=== PATIENT | male | born 1980 | race Caucasian/White ===

== ENCOUNTER 2019-05-09 17:12 | Emergency (ER) | payer SELFPAY ==
[2019-05-09] MEDS ORDERED: METHYLPREDNISOLONE INJ 125 MG/2 ML SDV IM ONE (18:09)
[2019-05-09] MEDS ORDERED: FAMOTIDINE 20 MG TABLET PO ONE (18:09)
[2019-05-09] MEDS ORDERED: DIPHENHYDRAMINE HCL 50 MG CAPSULE PO ONE (18:09)
[2019-05-09] MEDS ORDERED: DIPH/PERTUSS(ACELL)/TETANUS VAC/PF 0.5 ML SYR (>=10YO) IM ONE (18:11)
--- NOTE | 2019-05-09 18:11 | ER Document Report ---
ED Medical Screen (RME) - General Chief Complaint: Skin Problem Stated Complaint: POSSIBLE BUG BITE Time Seen by Provider: 05/09/19 18:02 - HPI Notes: 05/09/19 18:09 Patient is a 39-year-old male no significant past medical history who presents complaining of sudden onset left hand redness pain and swelling after he was cleaning out a duct underneath a mobile home. Patient does not recall feeling anything bite him, but when he pulled his hand out from underneath events he started noticing some redness and swelling which then progressed. This occurred at 2 PM initially. He has not noticed any purulent drainage or streaking otherwise. Patient states he does feel some generalized tingling throughout his body. No fever, headache, chest pain, shortness of breath, palpitations. No vomiting or diarrhea. No paralysis. I have treated and performed a rapid initial assessment of this patient. A comprehensive ED assessment and evaluation of the patient, analysis of test results and completion of medical decision making process will be conducted by additional ED providers. PHYSICAL EXAMINATION: GENERAL: Well-appearing, well-nourished and in no acute distress. A&Ox4. Answers questions appropriately. Left hand: There is noted swelling and erythema to the dorsal hand with mild tenderness to palpation. N/V intact. No strekas or discharge. - Related Data Allergies/Adverse Reactions: No Known Allergies Allergy (Verified 05/09/19 18:00) Physical Exam - Vital signs Vitals: Temp Pulse Resp BP Pulse Ox 99.8 F 104 H 18 139/60 H 99 05/09/19 17:42 05/09/19 17:42 05/09/19 17:42 05/09/19 17:42 05/09/19 17:42 Course - Vital Signs Vital signs: Temp Pulse Resp BP Pulse Ox 99.8 F 104 H 18 139/60 H 99 05/09/19 17:42 05/09/19 17:42 05/09/19 17:42 05/09/19 17:42 05/09/19 17:42
--- NOTE | 2019-05-09 18:45 | RADIOLOGY REPORT (SQ) ---
EXAM DESCRIPTION: HAND LEFT 3 VIEWS COMPLETED DATE/TIME: 05/09/2019 6:20 pm REASON FOR STUDY: pain/swelling dorsal hand, no injury COMPARISON: None. EXAM PARAMETERS: NUMBER OF VIEWS: Three views. TECHNIQUE: AP, lateral and oblique radiographic images acquired of the left hand. LIMITATIONS: None. FINDINGS: MINERALIZATION: Normal. BONES: Prior 5th metacarpal fracture. JOINTS: No effusions. SOFT TISSUES: Soft tissue swelling. OTHER: No other significant finding. IMPRESSION: Nonspecific soft tissue swelling. No acute osseous finding. TECHNICAL DOCUMENTATION: JOB ID: [id number] 2010 [employer]- All Rights Reserved Reading location - IP/workstation name: [email or web address]
[2019-05-09] MEDS ORDERED: CEFTRIAXONE 1 GM/D5W RTU 1 GM/50 ML RTUPB IV ONE (19:35)
[2019-05-09] MEDS ORDERED: NORMAL SALINE 1000 ML 1,000 ML IV ONE (19:35)
[2019-05-09 19:36] LABS: ABSOLUTE NEUT (AUTO) 5.5 10^3/uL (1.7-8.2); BASOPHILS % (AUTO) 0.4 % (0-2); EOSINOPHILS % (AUTO) 0.7 % (0-6); HEMOGLOBIN 14.6 g/dL (13.5-17.0); TOTAL CELLS COUNTED % (AUTO) 100 %; WHITE BLOOD COUNT 7.2 10^3/uL (4.0-10.5)
[2019-05-09] MEDS ORDERED: HYDROCODONE/ACETAMINOPHEN 5-325 MG (6 TAB/ER DISP) PO ONE (19:37)
--- NOTE | 2019-05-09 19:41 | ER Document Report ---
ED General - General Chief Complaint: Skin Problem Stated Complaint: POSSIBLE BUG BITE Time Seen by Provider: 05/09/19 18:02 Notes: Patient is a 39-year-old white male with no significant past medical history who presents to the emergency department with a chief complaint of painful red swollen left hand that occurred several hours prior to arrival. The patient reports that he was working underneath a mobile home on a duct vent area most of the day today. He denies recalling any bite or pain while working on this site. He states gradually after working he started to feel some burning sensation in the hand. He states he noticed some swelling and redness beginning to develop. He states that area has worsened over the past several hours, he was concerned so he came for evaluation. Patient is unsure of his last tetanus. Admits to pain and swelling of the left hand. No numbness tingling or weakness. - Related Data Allergies/Adverse Reactions: No Known Allergies Allergy (Verified 05/09/19 18:00) Past Medical History - Social History Smoking Status: Current Every Day Smoker Family History: None Patient has suicidal ideation: No Patient has homicidal ideation: No Review of Systems - Review of Systems Musculoskeletal: Joint pain Skin: Change in color -: Yes All other systems reviewed and negative Physical Exam - Vital signs Vitals: Temp Pulse Resp BP Pulse Ox 99.8 F 104 H 18 139/60 H 99 05/09/19 17:42 05/09/19 17:42 05/09/19 17:42 05/09/19 17:42 05/09/19 17:42 - General General appearance: Appears well, Alert In distress: None - Respiratory Respiratory status: No respiratory distress Chest status: Nontender Breath sounds: Normal Chest palpation: Normal - Cardiovascular Rhythm: Regular Heart sounds: Normal auscultation - Extremities Hand: Tender, No evidence of human bite, Swelling, Other - Good capillary refill distally in the left hand. Decreased range of motion of the hand secondary to pain and swelling. +2+ radial pulse on the left. - Neurological Neuro grossly intact: Yes Cognition: Normal Orientation: AAOx4 [place] Coma Scale Eye Opening: Spontaneous [place] Coma Scale Verbal: Oriented [place] Coma Scale Motor: Obeys Commands [place] Coma Scale Total: 15 Speech: Normal Motor strength normal: LUE, RUE, LLE, RLE Sensory: Normal - Psychological Associated symptoms: Normal affect, Normal mood - Skin Skin Color: Other - Erythematous left hand dorsally with some proximal streaking to about the left elbow, multiple superficial skin scrapes to the left dorsal hand and forearm no obvious bite sites. Increased warmth. No abscess Course - Re-evaluation Re-evalutation: 05/09/19 20:49 Reevaluation at this time, patient reports significant provement in the erythema and swelling already. He will be sent home on double coverage with Bactrim and Keflex. His tetanus was updated. White count within normal limits, afebrile. He is stable and appropriate for discharge and outpatient follow-up. Advised to return here or any ER immediately with any new, persistent or worsening symptoms. He verbalized understood and agreed. - Vital Signs Vital signs: Temp Pulse Resp BP Pulse Ox 99.8 F 104 H 18 139/60 H 99 05/09/19 17:42 05/09/19 17:42 05/09/19 17:42 05/09/19 17:42 05/09/19 17:42 - Laboratory Result Diagrams: 05/09/19 19:12 05/09/19 19:12 Laboratory results interpreted by me: 05/09/19 05/09/19 19:12 19:12 Plt Count 133 L Sodium 134.6 L Chloride 97 L Discharge - Discharge Clinical Impression: Cellulitis Qualifiers: Site of cellulitis: other site Qualified Code(s): L03.818 - Cellulitis of other sites Condition: Stable Disposition: HOME, SELF-CARE Instructions: Cellulitis ([facility]) Additional Instructions: Follow-up with your regular doctor in 2 to 3 days for reevaluation. Return here or any ER immediately with any new, persistent or worsening symptoms. Prescriptions: Sulfamethoxazole/Trimethoprim [Bactrim Ds Tablet] 1 each PO BID #20 tablet Cephalexin Monohydrate [Keflex 500 mg Capsule] 500 mg PO Q6H 10 Days #40 capsule
[2019-05-09 19:45] LABS: ABSOLUTE MONOCYTES (AUTO) 0.6 10^3/uL (0.1-1.4); HEMATOCRIT 42.5 % (37.9-51.0); LYMPHOCYTES % (AUTO) 13.7 % (13-45); MEAN CORPUSCULAR HEMOGLOBIN 32.3 pg (27.0-33.4); MEAN CORPUSCULAR HGB CONC 34.4 g/dL (32.0-36.0); MEAN CORPUSCULAR VOLUME 94 fl (80-97); MONOCYTES % (AUTO) 8.3 % (3-13); PLATELET COUNT 133 10^3/uL (150-450); RED BLOOD COUNT 4.53 10^6/uL (4.35-5.55); RED CELL DISTRIBUTION WIDTH 13.2 % (11.5-14.0); SEGMENTED NEUTROPHILS % (AUTO) 76.9 % (42-78)
[2019-05-09 19:58] LABS: ALKALINE PHOSPHATASE 75 U/L (38-126); ANION GAP 8 (5-19); ASPARTATE AMINO TRANSFERASE 46 U/L (17-59); BILIRUBIN,TOTAL 0.6 mg/dL (0.2-1.3); BLOOD UREA NITROGEN 16 mg/dL (7-20); CALCIUM 8.6 mg/dL (8.4-10.2); CARBON DIOXIDE 30 mmol/L (22-30); CHLORIDE 97 mmol/L (98-107); GLUCOSE 88 mg/dL (75-110); TOTAL PROTEIN 6.7 g/dL (6.3-8.2)
[2019-05-09 21:08] VITALS: BP 108/59
== END 2019-05-09 21:15 | disposition home or self-care (01) ==
LOC: ER 17:12
DX: L03.114 Cellulitis of left upper limb (principal); L03.818 Cellulitis of other sites; F17.200 Nicotine dependence, unspecified, uncomplicated; Z23 Encounter for immunization
CPT/HCPCS: 36415; 87040; 85025; 80053; 73130; 90715; J2930; J7030; J0696